=== PATIENT | male | born 1985 | race Two or more races ===

== ENCOUNTER 2023-01-01 05:32 | Emergency (ER) | payer SELFPAY ==
[2023-01-01] MEDS ORDERED: Diphtheria,Pertussis(Acell),Tetanus Vaccine 0.5 ML Syringe IM ONE (05:50)
[2023-01-01] MEDS ORDERED: Lidocaine 1% 5 ML VIAL INJECT ONE (05:51)
== END 2023-01-01 06:30 | disposition home or self-care (01) ==
LOC: MW.ED 05:32
DX: S62.630A Displaced fracture of distal phalanx of right index finger, initial encounter for closed fracture (principal); S67.190A Crushing injury of right index finger, initial encounter; Z23 Encounter for immunization; W23.1XXA Caught, crushed, jammed, or pinched between stationary objects, initial encounter
CPT/HCPCS: 12002; 73140-26-F6; 73140-F6; 90471; 90715; 99283-25; J3490